=== PATIENT | female | born 1945 | race Caucasian/White ===

== ENCOUNTER → 2018-08-30 15:30 | Outpatient (CLI) | payer SELFPAY ==
--- NOTE | 2018-08-30 15:50 | EKG12_ITS ---
Test Reason : PRE OP Blood Pressure : / mmHG Vent. Rate : 086 BPM Atrial Rate : 086 BPM P-R Int : 224 ms QRS Dur : 096 ms QT Int : 368 ms P-R-T Axes : 063 017 057 degrees QTc Int : 440 ms Sinus rhythm with 1st degree A-V block Possible Left atrial enlargement Borderline ECG Confirmed by PENNIE KEY, OMA ([id number]), social media editor PATTI CHERY ([id number]) on 08/31/2018 11:01:50 AM Referred By: Giuseppe Larson Confirmed By:OMA CASPER MD
[2018-08-30 16:28] LABS: Hematocrit 41.6 % (37-47); Hemoglobin 13.5 g/dl (12.0-15.0); Mean Corp Hgb Conc 32.5 g/gl (32-36); Mean Corpuscular Hgb 31.4 pg (27.0-32.0); Mean Corpuscular Volume 96.7 fL (81-99); Mean Platelet Vol. 10.2 fl (6.2-12.0); Platelet Count 252 K/mm3 (150-450); RBC Distribution Width CV 12.8 % (11.6-14.6); RBC Distribution Width SD 44.5 fl (35.1-43.9); White Blood Count 8.2 K/mm3 (4.4-11.0)
[2018-08-30 16:30] LABS: Scan Indicated on CBC? Y/N NO
[2018-08-30 17:17] LABS: Anion Gap 4 (5-15); BUN 16 mg/dL (7-18); BUN/Creat Ratio 25.6 RATIO (10-20); Calcium,Total 9.9 mg/dL (8.5-10.1); Chloride 109 mmol/L (98-107); Creatinine, Serum 0.62 mg/dL (0.55-1.02); EST Glomerular Filtration Rate 100 mL/min (>60); Est Glom Filt Rate - Afr Amer 121 mL/min (>60); Glucose 103 mg/dL (74-106); Potassium 3.6 mmol/L (3.5-5.1); Sodium Level 142 mmol/L (136-145)
== END ==
PROVIDERS: Family Provider Family Medicine; PCP Family Medicine; Referring Provider Physician Assistant Surgical; Visit Provider Physician Assistant Surgical
DX: Z01.810 Encounter for preprocedural cardiovascular examination (principal); I10 Essential (primary) hypertension
CPT/HCPCS: 36415; 80048; 85027; 93005

== ENCOUNTER → 2020-03-07 17:43 | Outpatient (CLI) | payer SELFPAY ==
[2020-03-07 18:02] LABS: Hematocrit 39.3 % (37-47); Hemoglobin 12.9 g/dL (12.0-15.0); Mean Corp Hgb Conc 32.8 g/dL (32-36); Mean Corpuscular Hgb 32.1 pg (27.0-32.0); Mean Corpuscular Volume 97.8 fL (81-99); Mean Platelet Vol. 9.2 fl (6.2-12.0); Platelet Count 263 K/mm3 (150-450); RBC Distribution Width CV 12.3 % (11.6-14.6); RBC Distribution Width SD 43.8 fl (35.1-43.9); Red Blood Count 4.02 M/mm3 (4.2-5.4); White Blood Count 7.6 K/mm3 (4.4-11.0)
--- NOTE | 2020-03-07 18:09 | EKG12_ITS ---
Test Reason : PRE-OP Blood Pressure : / mmHG Vent. Rate : 079 BPM Atrial Rate : 079 BPM P-R Int : 194 ms QRS Dur : 094 ms QT Int : 394 ms P-R-T Axes : 064 010 040 degrees QTc Int : 451 ms Normal sinus rhythm Normal ECG Confirmed by PENNIE KEY, OMA ([id number]), state editor PATTI CHERY ([id number]) on 03/14/2020 8:54:42 AM Referred By: Santino Dutton Confirmed By:OMA CASPER MD
[2020-03-07 18:44] LABS: Anion Gap 5 (5-15); BUN 13 mg/dL (7-18); BUN/Creat Ratio 21.6 RATIO (10-20); Calcium,Total 10.1 mg/dL (8.5-10.1); Chloride 109 mmol/L (98-107); EST Glomerular Filtration Rate 104 mL/min (>60); Est Glom Filt Rate - Afr Amer 126 mL/min (>60); Glucose 102 mg/dL (74-106); Sodium Level 141 mmol/L (136-145)
== END ==
PROVIDERS: PCP Family Medicine; Referring Provider Orthopaedic Surgery; Visit Provider Orthopaedic Surgery
DX: Z01.810 Encounter for preprocedural cardiovascular examination (principal)
CPT/HCPCS: 36415; 80048; 85027; 93005

== ENCOUNTER → 2020-07-20 15:25 | Outpatient (CLI) | payer SELFPAY ==
--- NOTE | 2020-07-20 15:48 | RAD_ITS ---
HISTORY: BACK PAIN ADDITIONAL HISTORY: None provided. EXAMINATION/TECHNIQUE: XR Spine Thoracic 3 Views Number of images including paperwork: 2 COMPARISON: None FINDINGS: VERTEBRAE: Mild anterior wedging of multiple mid thoracic vertebrae. VERTEBRAL ALIGNMENT: No traumatic subluxation. Left convex thoracic scoliosis measuring approximately 15 and right convex lumbar curvature partially visible. Thoracic kyphosis. DISKS AND JOINTS: Moderate multilevel discogenic degenerative changes. SOFT TISSUES: Unremarkable paraspinous soft tissues. RAD/Thoracic Spine 3 Views IMPRESSION: 1. Mild anterior wedging of multiple mid thoracic vertebrae, age indeterminate. Correlate for localized pain. 2. Thoracolumbar scoliosis and thoracic kyphosis. 3. Thoracic spondylosis. at 0416 Reported and signed by: Viki Owens MD Electronically Signed: Viki Owens MD at 4:15 EST Tel , Service support ,
--- NOTE | 2020-07-20 15:48 | RAD_ITS ---
HISTORY: BACK PAIN ADDITIONAL HISTORY: None provided. EXAMINATION/TECHNIQUE: XR Spine Lumbar Min 4 Views Number of images including paperwork: 5 COMPARISON: None FINDINGS: VERTEBRAE: No acute fracture. Mineralization appears decreased. Approximate 20 of right convex lumbar scoliosis. VERTEBRAL ALIGNMENT: No traumatic subluxation. DISKS AND JOINTS: Moderate to severe discogenic degenerative changes at L4-5, greater on the right. SOFT TISSUES: Vascular calcification. RAD/L/S Spine Min 4 Views IMPRESSION: 1. No acute osseous abnormality. 2. Lumbar scoliosis. 3. Degenerative changes at L4-5. at 0413 Reported and signed by: Viki Owens MD Electronically Signed: Viki Owens MD at 4:13 EST Tel , Service support ,
== END ==
PROVIDERS: PCP Family Medicine; Referring Provider Family Medicine; Visit Provider Family Medicine
DX: M54.5 Low back pain (principal); M54.6 Pain in thoracic spine
CPT/HCPCS: 72072; 72110

== ENCOUNTER → 2024-06-21 | Outpatient (CLI) | payer SELFPAY ==
--- NOTE | 2024-06-21 13:18 | US_ITS ---
EXAM: US SOFT TISSUES HEAD AND NECK, THYROID CLINICAL INDICATION: thyromegaly TECHNIQUE: Greyscale and color doppler imaging was performed of the thyroid gland. COMPARISON: No relevant prior studies available. FINDINGS: LEFT THYROID LOBE: The left lobe of the thyroid is heterogeneous. Solid/cystic nodule measuring 11 x 7 x 5 mm upper pole of the left lobe of the thyroid is isoechoic, wider than tall, smooth, without echogenic foci. Cyst measuring 4 x 5 x 3 mm mid left lobe of the thyroid. The left lobe of the thyroid lobe measures 3.4 x 1.3 x 1.6 cm. RIGHT THYROID LOBE: The right lobe of the thyroid is heterogeneous. Cystic nodule measuring 8 x 8 x 7 mm superior aspect of the right lobe of the thyroid. Solid/cystic nodule measuring 10 x 8 x 6 mm superior right lobe of the thyroid is isoechoic, wider than tall, smooth without echogenic foci. Mixed cystic/solid nodule measuring 6 x 5 x 5 mm mid right lobe of the thyroid is hypoechoic, wider than tall, smooth, with an echogenic focus. No macrocalcification. No peripheral calcification. There is a punctate echogenic focus. Cystic nodule measuring 7 x 9 x 6 mm inferior right lobe of the thyroid. The right lobe of thyroid lobe measures 4.2 x 1.7 x 2.1 cm. ISTHMUS: Unremarkable. No thyroid nodules are present. The isthmus measures 0.5 cm in thickness. US/Thyroid IMPRESSION: 1. Cystic nodule measuring 8 x 8 x 7 mm superior aspect of the right lobe of the thyroid. TI-RADS points: 0. TI-RADS category: TR1. This nodule is benign and no FNA or follow-up is necessary. 2. Solid/cystic nodule measuring 10 x 8 x 6 mm superior right lobe of the thyroid is isoechoic, wider than tall, smooth without echogenic foci. TI-RADS points: 2. TI-RADS category: TR2. This nodule is not suspicious and no FNA or follow-up is necessary. 3. Mixed cystic/solid nodule measuring 6 x 5 x 5 mm mid right lobe of the thyroid is hypoechoic, wider than tall, smooth, with an echogenic focus. No macrocalcification. No peripheral calcification. There is a punctate echogenic focus. TI-RADS points: 6. TI-RADS category: TR4. This nodule is moderately suspicious but no FNA or follow-up is necessary given the small size of this nodule. 4. Cystic nodule measuring 7 x 9 x 6 mm inferior right lobe of the thyroid. TI-RADS points: 0. TI-RADS category: TR1. This nodule is benign and no FNA or follow-up is necessary. 5. Solid/cystic nodule measuring 11 x 7 x 5 mm upper pole of the left lobe of the thyroid is isoechoic, wider than tall, smooth, without echogenic foci. TI-RADS points: 2. TI-RADS category: TR2. This nodule is not suspicious and no FNA or follow-up is necessary. 6. Cyst measuring 4 x 5 x 3 mm mid left lobe of the thyroid. TI-RADS points: 0. TI-RADS category: TR1. This nodule is benign and no FNA or follow-up is necessary. Electronically Signed: Santino Whiteside MD at 8:06 EST ,
== END | disposition home or self-care (01) ==
PROVIDERS: PCP Nurse Practitioner Family; Referring Provider Nurse Practitioner Family; Visit Provider Nurse Practitioner Family
DX: R13.10 Dysphagia, unspecified (principal); E04.9 Nontoxic goiter, unspecified
CPT/HCPCS: 76536

== ENCOUNTER → 2024-08-09 | Outpatient (CLI) | payer SELFPAY ==
--- NOTE | 2024-08-09 13:38 | SP.MBSS_ITS ---
Modified Barium Swallow Patient Information Study Date: 08/09/24 Study Time: 12:55 Direct Billable Minutes: 89 Total Minutes procedure & reportin Diagnosis: Dysphagia R13.10 Referring Physician: Santino Vergara Reason for Referral: Objectively assess swallow function, assess risk for aspiration, and determine recommendations for least restrictive diet textures and compensatory strategies to improve safety of swallow. Medical History: PMH: multiple thyroid nodules, difficulty swallowing, bright red blood per rect um, constipation, hemorrhoids, stomach ulcer, GERD, HTN, arthritis. Pt had recent surgical consultation w/ Dr. Vergara due to swallowing difficulty and bright red blood per rectum. She is recommended for EGD and colonoscopy, as well as MBSS. Pt reports swallowing difficulty for ~1 year characterized by sensation of something caught in her throat at all times, but especially in the morning and while she is eating food/drink. Occ coughing w/ food and drink. No hx of choking. No regurgitation. PMH significant for GERD managed by Protonix, PNA as a child, and dental issues requiring upcoming oral surgery due to tooth infection. Current Diet Ordered: Regular textures / Thin liquids Dentition: Natural Teeth (Planned for upcoming dental surgery per patient) Mental Status: WNL Respiratory Status: Oxygenating on Room Air Penetration-Aspiration Scale Penetration-Aspiration Scale: OBJECTIVE ASSESSMENT OF SWALLOW FUNCTION (QUANTITATIVE ? PER TRIAL): PENETRATION / ASPIRATION SCALE ([place]): 1 = does not enter airway 2 = enters airway/above vocal folds/ejected 3 = enters airway/above vocal folds/not ejected 4 = enters airway/contacts vocal folds/ejected 5 = enters airway/contacts vocal folds/not ejected 6 = enters airway/below vocal folds/ejected 7 = enters airway/below vocal folds/not ejected despite effort 8 = enters airway/below vocal folds/no effort VIDEOFLOROSCOPIC SCALE SCORE ([place]): Grade I = aspiration of material that has penetrated into the laryngeal vestibule, intact cough reflex Grade II = aspiration < 10 % of the bolus, intact cough reflex Grade III = aspiration of < 10 % of the bolus, reduced cough reflex or aspiration of > 10 % of the bolus, intact cough reflex Grade IV = aspiration of > 10 % of the bolus, reduced cough reflex Penetration-Aspiration Scale Score Thin Liquid via teaspoon: Result: 2= enter airway/above vocal folds/ejected Thin Liquid via teaspoon Trial 2: Result: 1= does not enter airway Thin Liquid via sequential sips: cup: Result: 2= enter airway/above vocal folds/ejected [place] Thick Liquid via sequential sips: cup: Result: 2= enter airway/above vocal folds/ejected Pudding via teaspoon: Result: 1= does not enter airway Comment: Esophageal screen - Retention in the upper and middle esophagus. Thin Liquid via sequential sips:straw: Result: 2= enter airway/above vocal folds/ejected Comment: Esophageal screen - Liquid wash mostly cleared retention through the esophagus with mild retention remaining. 07/16 Cookie: Result: 1= does not enter airway Comment: Esophageal screen - Mild retention in the upper and lower esophagus. Liquid wash via single sip by straw was provided and somewhat cleared remaining retention, but pt did present w/ retrograde flow of barium through the LES to the lower esophagus. Oral Phase Labial Seal: No Labial Escape Tongue Control During Bolus Hold: Posterior escape of less than half of bolus Bolus Preparation/Mastication: Timely and efficient chewing and mashing Bolus Transport/Lingual Motion: Delayed initiation of tongue motion Oral Residue: Residue collection on oral structures Pharyngeal Phase Initiation of Pharyngeal Swallow: Bolus head in pyriforms Soft Palate Elevation: Trace column of contrast/air between soft palate and pharyngeal wall Laryngeal Elevation: Comp. Superior move thyroid cart w/comp. apprx arytenoid cart-epig pet Anterior Hyoid Excursion: Partial anterior movement Epiglottic Movement: Complete inversion Laryngeal Vestibule Closure at Height of Swallow: Incomplete; narrow column of air/contrast in laryngeal vestibule (trace laryngeal penetration w/ full ejection) Pharyngeal Stripping Wave: Present - complete Pharyngoesophageal Segment Opening: Complete distension and complete duration; no obstruction of flow Tongue Base Retraction: Trace column of contrast between tongue base & post. pharyngeal wall Pharyngeal Residue: Trace residue within or on pharyngeal structures Esophageal Phase Esophageal Clearance: Esophageal retention w/ retrograde flow below pharyngoesophageal seg. Diagnosis/Impression Diagnosis: Esophageal dsyphagia R13.14 Impression: The oropharyngeal swallow appeared grossly WNL. Trace laryngeal penetration of thin liquids during the swallow that fully ejected. No aspiration. Trace pharyngeal residues. The esophageal phase is primarily marked by... -CP bar at the level of C3-C4, which did not appear to impact bolus clearance through the UES. -Retention of pudding in the upper and middle esophagus, which mostly cleared w/ liquid wash. -Retention of cookie in the upper and lower esophagus, which somewhat cleared w/ liquid wash. Retrograde flow of thin liquids through the LES to the lower esophagus. Recommendations Diet: Regular Textures and Thin Liquids Comment: If sensation of retention of food/drink worsens in throat despite use of liquid wash, will recommend stopping meal and resuming at a later time due to slowed esophageal clearance. Compensatory Strategies: Small Bites, Small Sips, Slow Rate, Alternate bites/solids and sips/liquids (1:1 ratio), Sitting upright and Remain sitting upright for 30 minutes after PO intake Recommend Repeat Modified Barium Swallow: No Need for Skilled Speech Therapy Services: No Recommended Referrals: GI Consult Education Completed: 1. Described result of evaluation. Status Active ST Patient: Active Contact Information [facility]:: Susana Vidal M.A. CCC-DIRECT MARKETING INTERN? Speech-Language Pathologist?? [facility] [id number]?? [place] [address]?? [email or web address]?? [phone]
== END | disposition home or self-care (01) ==
PROVIDERS: PCP Nurse Practitioner Family; Referring Provider Surgery; Visit Provider Surgery
DX: R13.10 Dysphagia, unspecified (principal)
CPT/HCPCS: 74230; 92611

== ENCOUNTER 2024-09-22 12:27 | Day surgery (SDC) | payer SELFPAY ==
[2024-09-22] VITALS (9 sets, daily range): BP systolic 108–167; BP diastolic 64–94; PULSE 53–86; RESP 16; TEMP 36.1–36.5; O2SAT 94–100; BMI 29.0
--- NOTE | 2024-09-22 13:30 | EGD_PTH ---
PATIENT: MIKAELA LANDRUM LOC: EN U#:[id number] AGE/SX: 79/F ROOM: RE09/22/[address]: Dr. Santino Vergara MD : 1945 BED: DIS: 09/22/2024 SPEC #: [id number] RECD: 09/23/24 13:23 STATUS: DONIS NEVA #: [id number] LANDEN: 09/22/24 13:[address]: Santino Vergara DEPT: SURGICAL PATHOLOGY RECD BY: Avinash Mendoza ENTERED: 09/23/24 13:24 SP TYPE: EGD BIOPSY OTHR DR: Wendy Fry, CAREER PORTALS TEACHER-C Tissues: A - Gastric mucous membrane B - Stomach, NOS C - COLON BIOPSY D - Esophagus, NOS E - Rectum, NOS Procedures: Immunohistochemical Stains Surgery Specimen Level IV HEADER OPERATION: Colonoscopy, EGD with biopsy, hemostasis PRE-OP DIAGNOSIS: Difficulty swallowing, bright red blood per rectum TISSUE SUBMITTED: A- Antrum biopsy, B- Lesser curvature polyp, C- Fundal polyps biopsy (3), D- Gastroesophageal junction biopsy, E- Anal mass MICROSCOPIC DIAGNOSIS A. Stomach, antrum, biopsy: * Chronic gastritis with features of reactive gastropathy. * IHC is negative for H pylori. B. Stomach, lesser curvature, polyp, biopsy: * Fundic gland polyp. C. Stomach, fundus, polyps, biopsy: * Fundic gland polyp. * Polypoid foveolar hyperplasia. D. Esophagus, gastroesophageal junction, biopsy: - Columnar mucosa negative for goblet cell metaplasia. - No squamous mucosa seen. E. Anus, mass, biopsy: * Inflammatory polyp. A. MICROSCOPIC DESCRIPTION Slides are reviewed. These tests were developed and their performance characteristics determined by [facility]. They may not have been cleared or approved by the U.S. Food and Drug Administration. The FDA has determined that such clearance or approval is not necessary. The above immunohistochemical/dualISH markers are ordered and reviewed by the Pathologist. GROSS DESCRIPTION A. Received in fixative is one container labeled with the patient's name and designated Antrum biopsy. The specimen consists of two irregular fragments of light guido soft tissue that in aggregate measure 0.8 x 0.2 x 0.2 cm. The specimen is totally submitted in one cassette. B. Received in fixative is one container labeled with the patient's name and designated Lesser curvature biopsy. The specimen consists of one irregular fragment of light guido soft tissue that measures 0.4 x 0.3 x 0.2 cm. The specimen is totally submitted in one cassette. C. Received in fixative is one container labeled with the patient's name and designated Fundal polyps. The specimen consists of multiple irregular fragments of light guido soft tissue that in aggregate measure 1.4 x 0.3 x 0.2 cm. The specimen is totally submitted in one cassette. D. Received in fixative is one container labeled with the patient's name and designated GE junction biopsy. The specimen consists of one irregular fragment of light guido soft tissue that measures 0.4 x 0.2 x 0.2 cm. The specimen is totally submitted in one cassette. E. Received in fixative is one container labeled with the patient's name and designated Anal mass. The specimen consists of one irregular fragment of light guido soft tissue that measures 1 x 1 x 0.5 cm. The specimen inked, bisected and is totally submitted in one cassette. mr 09/23/2024 CPT:[id number]
--- NOTE | 2024-09-22 13:48 | PCM.PRE.AN2 ---
ASA Classification* ASA Classification ASA Classification: 2 Assessment & Plan Anesthesia* Anesthesia Assessment Anesthesia Assessment: Discussed sedation and/or anesthesia options, risks, benefits, and alternatives with patient/parents/legal guardian/POA. Questions invited. The patient/parents/legal guardian/POA seems to understand and agrees to proceed with anesthesia plan. Reviewed the physical assessment, medical history, allergy history and patient home medications list prior to surgery/procedure/anesthetic and documented any changes. Performed airway and anesthesia risk assessments. Anesthesia Type Anesthesia Type: General History Source History Obtained from:: Patient and Chart Anesthesia Focused Assessment* Temperature: 97.7 F Pulse Rate: 86 Blood Pressure: 167/85 Respiratory Rate: 16 Pulse Ox: 98 Oxygen Delivery Method: Room Air Airway Assessment Mouth opens: >3 cm Mallampati Score: II Teeth Condition: Chipped/Broken and Missing (many missing) Neck Range of motion (ROM): Full ROM Focused Labs Anesthesia Preop lab: CBC WBC 7.6 K/mm3 (4.4-11.0) 03/07/20 17:54 03/07/20 RBC 4.02 M/mm3 (4.2-5.4) L 03/07/20 17:54 03/07/20 Hgb 12.9 g/dL (12.0-15.0) 03/07/20 17:54 03/07/20 Hct 39.3 % (37-47) 03/07/20 17:54 03/07/20 Plt Count 263 K/mm3 (150-450) 03/07/20 17:54 03/07/20 CHEMISTRY Potassium 4.0 mmol/L (3.5-5.1) 03/07/20 17:54 03/07/20 Sodium 141 mmol/L (136-145) 03/07/20 17:54 03/07/20 BUN 13 mg/dL (7-18) 03/07/20 17:54 03/07/20 Creatinine 0.60 mg/dL (0.55-1.02) 03/07/20 17:54 03/07/20 Glucose 102 mg/dL (74-106) 03/07/20 17:54 03/07/20 COAG Pre-Assessment Diagnosis/Proposed Procedure Planned Operative Procedure(s): COLONOSCOPY/EGD Anesthesia History 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 When Was Last Pacemaker Check QUESTION #4 FULL TEXT: You/Your Family Experience fever (hyperthermia) with Anesthesia Last Oral Intake Last Oral intake: Last Oral Intake NPO since 06:00 09/22/24 12:59 Meds taken in AM with sips of Yes 09/22/24 12:59 water? Meds patient instructed to amlodipine 09/22/24 12:59 take am of surgery PONV PONV - property accountant: PONV - property accountant Female Yes 09/05/24 09:39 HX of Motion Sickness No 09/05/24 09:39 HX of N/V After Surgery No 09/05/24 09:39 Non-Smoker Yes 09/05/24 09:39 Duration of Surgery greater No 09/05/24 09:39 than 60 minutes Number of Risk Factors 2 09/05/24 09:39 PONV Score Moderate Risk 09/05/24 09:39 Height & Weight Height & Weight: Anesthesia: Height & Weight Height 5 ft 09/22/24 12:59 Weight: 67.4 kg 09/22/24 12:59 Body Mass Index (BMI) 29.0 09/22/24 12:59 Respiratory Assessment Respiratory Assessment - property accountant: Respiratory Tract Infection Hx - property accountant Hx Respiratory Tract Infection No 09/05/24 09:39 STOP Sleep Apnea STOP Sleep Apnea - property accountant: STOP Sleep Apnea - property accountant Hx Hypertension No 09/05/24 09:39 Hx Sleep Apnea No 09/05/24 09:39 CPAP BIPAP Do you snore loudly (louder No 09/05/24 09:39 than talking or can be heard Do you often feel tired/ No 09/05/24 09:39 fatigued/ sleepy during daytime? Has anyone observed you stop No 09/05/24 09:39 breathing during sleep? STOP Results Negative 09/05/24 09:39 QUESTION #5 FULL TEXT : Do you snore loudly (louder than talking or can be heard through closed doors)? Tobacco Use History Tobacco Use History - property accountant: Tobacco Use History - property accountant Tobacco Use Smoking Status Never smoker 09/05/24 09:39 Hx Tobacco Use No 09/05/24 09:39 Years Smoking Packs Smoked per Day Smoking Cessation Date was within the last 15 years Hx Smoking Cessation Date Hx Smoking Cessation Counseling Hematologic Medial History Hematologic Hx - property accountant: Hematologic Medical Hx - cath lab technologist Hx of Blood Transfusion Yes 09/05/24 09:39 Hx of Transfusion in last 3 No 09/05/24 09:39 Months Date of Last Transfusion (if within last 3 months) Ever experience any problems No 09/05/24 09:39 with transfusion(s)? Specify any problems Hx of Preganancy in last 3 No 09/05/24 09:39 Months Nurse Filling Out Transfusion VCHRISTIN 09/05/24 09:39 & Questions: Date: 09/05/24 09/05/24 09:39 Time: 09:40 09/05/24 09:39 Patient unable to answer at this time (ie. confused, unrespo /Reproduction History /Reproductive History - property accountant: /Reproductive Hx- property accountant Hx Now Gestational Age (in weeks): EDC: Hx Hx Para Hx Section SAB PFSH Medical History Wears glasses Post-menopausal History of abscessed tooth DVT (deep venous thrombosis) Back pain History of ulceration Gastric reflux Non-smoker History of pain when walking History of edema History of irregular heartbeat Constipation Hemorrhoids Stomach ulcer Acid reflux HTN (hypertension) Arthritis Home Medications ?Medication ?Instructions ?Recorded ?Last Taken ?Type amlodipine 5 mg tablet 5 mg PO QDAY 07/27/24 09/22/24 08:30 History aspirin 81 mg tablet,delayed 81 mg PO QDAY 07/27/24 09/17/24 History release (Adult Aspirin Regimen) cholecalciferol (vitamin D3) 25 25 mcg PO QDAY 07/27/24 Unknown History mcg (1,000 unit) capsule hydrochlorothiazide 12.5 mg capsule 12.5 mg PO QAM 07/27/24 Unknown History lisinopril 5 mg tablet 5 mg PO QDAY 07/27/24 Unknown History omega 8-grj-cxn-fish oil 300 1 cap PO QDAY 07/27/24 09/17/24 History mg-1,000 mg capsule (Fish Oil) pantoprazole 40 mg tablet,delayed 40 mg PO QDAY 07/27/24 Unknown History release (Protonix) red yeast rice 600 mg capsule 600 mg PO QDAY 07/27/24 Unknown History vitamin E (dl, acetate) 45 mg (100 45 mg PO QDAY 07/27/24 09/17/24 History unit) capsule Allergy/AdvReac Type Severity Reaction Status Date / Time No Known Allergies Allergy Verified 09/22/24 12:57 Surgical History (Updated 09/05/24 @ 09:39 by Wendy Armas) Hx of colonoscopy Hx of dilation and curettage Hx of knee surgery H/O carpal tunnel repair H/O: hysterectomy Social History (Updated 07/27/24 @ 08:31 by Kristen Callahan) Smoking Status: Never smoker alcohol intake: never Review of Systems (Anesthesia) ROS Narrative System reviewed and no additional complaints, except as documented. Physical Exam Const alert, oriented x3 and average body habitus Resp normal respiratory effort, normal air movement and clear to auscultation bilaterally Cardio regular rate, regular rhythm, no murmurs and diaphoretic
--- NOTE | 2024-09-22 14:26 | PCM.HP.BLA ---
History and Physical Date of Admission: 09/22/24 Date of Service: 07/27/24 MR#: [id number] Acct: [id number] Name: MIKAELA JENKINS Rep #: [id number] : 1945 Provider: Dr. Santino Vergara MD Age/Sex: 78/F Location: [facility] Status: Signed Intake Vital Signs 07/27/2507:31 Height 5 ft Weight: 154 lb BMI 30.0 BP 158/89 H Blood Pressure Location Lt brachial Position Sitting Respiration 17 Pulse 74 Pulse Source Monitor Temp 97.5 F L Temp Source Temporal Pulse Oximetry (%) 95 Oxygen Delivery Method room air Intake Visit Reasons: THYROID NODULE Chief Complaint: thyroid nodule Is patient in pain?: No Allergies No Known Allergies Allergy (Verified 07/27/24 08:31) Medications ?Medication ?Instructions ?Recorded ?Confirmed ?Type amlodipine 5 mg tablet 5 mg PO QDAY 07/27/24 07/27/24 History aspirin 81 mg tablet,delayed 81 mg PO QDAY 07/27/24 07/27/24 History release (Adult Aspirin Regimen) cholecalciferol (vitamin D3) 25 25 mcg PO QDAY 07/27/24 07/27/24 History mcg (1,000 unit) capsule hydrochlorothiazide 12.5 mg capsule 12.5 mg PO QAM 07/27/24 07/27/24 History lisinopril 5 mg tablet 5 mg PO QDAY 07/27/24 07/27/24 History omega 3-vqq-wyk-fish oil 300 1 cap PO QDAY 07/27/24 07/27/24 History mg-1,000 mg capsule (Fish Oil) pantoprazole 40 mg tablet,delayed 40 mg PO QDAY 07/27/24 07/27/24 History release (Protonix) red yeast rice 600 mg capsule 600 mg PO QDAY 07/27/24 07/27/24 History vitamin E (dl, acetate) 45 mg (100 45 mg PO QDAY 07/27/24 07/27/24 History unit) capsule Have you fallen in the past year?: No PFSH Medical History (Updated 07/27/24 @ 14:[address] Santino Vergara MD) Constipation Hemorrhoids Stomach ulcer Acid reflux HTN (hypertension) Arthritis Surgical History (Updated 07/27/24 @ 08:30 by Kristen Callahan) H/O carpal tunnel repair H/O: hysterectomy Social History (Updated 07/27/24 @ 08:31 by Kristen Callahan) Smoking Status: Never smoker alcohol intake: never HPI HPI HPI: Patient is a 78-year-old female who presents for evaluation of bilateral thyroid nodularity and thyromegaly. They are referred for surgical consultation from Mrs. Ang NP. This was discovered during evaluation for patient complaints of swallowing difficulty. Mrs. Jenkins is somewhat vague in her history but describes a mildly progressive difficulty swallowing that exceeds 1 year duration. She notes that it is now experienced all the time and denies any clear association with either food or drink. She clarifies that she has had no choking episodes. She also clarifies that it does seem to be higher in her neck than lower and a retrosternal location. She adds that it feels like something needs cleared out. They do not complain of a new cough. They do not appreciate new voice changes. They do not have a history of snoring/sleep apnea. Additionally, their weight has been stable and they do not have a history of weight gain/loss or an inability to lose despite intentional effort. There is no history of recent fatigue and patient confirms her energy level has been reasonable. They do not have a history of heat or cold intolerance. Other symptoms include: Some constipation. They do not have a family history of thyroid disorders or endocrinopathies. There is no history of prior radiation exposure. Previous work-up has included thyroid ultrasound. This study was performed on 06/21/2024 and showed a right thyroid lobe measuring 4.2 x 1.7 x 2.1 cm. Within this lobe radiology identified multiple nodules measuring from 0.6 cm to 1 cm in greatest dimension and ranged from a TI-RADS 1 rating to a TI-RADS 4 rating (a 6 mm nodule). The left thyroid lobe measured 3.4 x 1.3 x 1.6 cm. Within this lobe radiology identified 2 additional nodules measuring 1.1 cm and 5 mm in greatest dimension. An FNA has not been recommended nor been performed. Mrs. Jenkins goes on to describe that she is experiencing some lower abdominal pain which she believes is relieved with bowel movements. She also adds that with her constipation she has noticed some bright red blood per rectum and attributes this to hemorrhoidal disease. She describes bowel movement frequency of 3-4 stools per day and minimal toilet time. She confirms a history of a colonoscopy approximately [address] Bhavik Martins of [facility]. She believes at that time she was given a 10-year follow-up. Additionally, she describes some reflux and a history of Protonix use. She confesses that she was feeling better so she resorted to an atrk-ins-gvoblwn medication but now feeling more poorly return to Protonix and has been on this medication faithfully for the last 1 week. In addition to the colonoscopy performed in 2019 she did undergo EGD exam at that time and was told she had an ulcer?occasioning the prescription for Protonix. ROS General General: No weight change, appetite, fatigue, colon cancer, breast cancer or weakness HEENT HEENT: Yes difficulty swallowing and eye surgery; No eye injury, swollen glands or hoarseness Endo Endocrine: No thyroid disease, diabetes mellitus, thyroid cancer, Hair loss, heat intolerance or cold intolerance Skin Skin: No rash or changing moles Musc Musculoskeletal: Yes back problems and arthritis; No rheumatoid arthritis, gout or joint pain Cardio Cardiovascular: Yes high blood pressure; No murmur, pacemaker, heart disease, atrial fibrillation, heart attack, heart stent, palpitations, shortness of breat with exertion or chest pain Psych Psychiatric: No depression, anxiety or hearing voices Resp Respiratory: No shortness of breath, No sleep apnea, No cough, No COPD, No asthma, No emphysema and No wheezing Gastro Gastrointestinal: Yes abdominal pain, No nausea or vomiting, No diarrhea, Yes constipation, No blood in stool, Yes acid reflux, Yes hemorrhoids, Yes ulcers, No gallbladder problem and No black,tarry stools Celestino Hematologic: No blood thinners, No blood disorders, No bleeding, No anemia and Yes blood clots Additional Details: 1972 Neuro Neurologic: No system reviewed and no additional complaints, except as documented, No as per HPI, No abnormal gait, No abnormal hearing, No abnormal movements, No abnormal speech, No behavioral changes, No burning sensations, No confusion, No convulsions, No disequilibrium, No dizziness, No localized weakness, No frequent falls, No headache(s), No lack of coordination, No loss of vision, No memory loss, Yes numbness, No other visual disturbances, No radicular pain, No restless legs, No sensory deficit, No syncope, Yes tingling, No tremor(s), No weakness and No other Exam Const General: cooperative and comfortable Orientation: alert, awake and oriented x3 Neck Other: Supple, moderately thick, no discrete thyroid nodularity. No appreciable cervical lymphadenopathy with palpation. GI Other: Nondistended, soft, nontender to palpation x 4 quadrants Assessment and Plan Assessment and Plan (1) Multiple thyroid nodules: Status: Acute Comment: Patient is 78-year-old female who arrives for consultation related to recent finding of multiple thyroid nodules. I held a lengthy conversation with patient and her regarding the recent ultrasound exam of her thyroid and sketched out a schematic of her thyroid as it might be represented in a rudimentary fashion. I shared that majority of her nodules were rated either TI-RADS 1 or 2. They 1 nodule that merited a TI-RADS 4 rating that is just 6 mm in greatest diameter and located in the right thyroid lobe. I went on to describe the TI-RADS rating system as a means of triage nodules based on their imaging characteristics. I extended my explanation to share that none of her nodules met ACR criteria for biopsy. I further explained that her thyroid proportions are not particularly concerning and I felt unlikely to be the cause of her complaints of dysphagia versus globus sensation. Instead, I favor a esophageal/reflux etiology?especially in light of her can fashions of going off of PPI medication after discovery of prior ulcer disease. This impression was shared and I recommended proceeding with esophagram as well as repeat EGD (since patient's symptoms developed subsequent to her EGD exam in 2019) Plan: ? No biopsy of patient's thyroid recommended and feel unlikely to be source for swallowing difficulty/globus sensation (2) Difficulty swallowing: Status: Acute Comment: As above, suspect possible esophageal etiology for patient's swallowing difficulty and recommend EGD if esophagram. Patient initially apprehensive but with further explanation does agree to proceed. Plan: EGD and esophagram (3) Bright red blood per rectum: Status: Acute Comment: Patient describes bright red blood per rectum which she attributes to hemorrhoids, however, she estimates that her last colonoscopy was conducted some 5 years ago. Given the duration since this exam I recommend proceeding for repeat exam concurrent with her EGD recommended above. Will consent her for possible hemorrhoid banding if this is found to be the cause of her bleeding. Plan: Plan will be to complete colonoscopy with hemorrhoid banding on first mutually agreeable date under local MAC. Pre-procedure prep discussed and paper instructions provided. Patient is also made aware that she will need to have a clark driver with her the day of the procedure. Orders: Orders Swallowing Function w/Video Today R13.10 - Dysphagia, unspecified I have examined the patient the following changes are noted: Patient had a upper respiratory tract infection developed 2 weeks ago prompting her to cancel her original appointment. She states she is now better. She has had ongoing difficulty intermittently with both swallowing as well as abdominal pain and diarrhea. With all of these things remaining consistent with her prior visit we will plan to keep our original plans for EGD followed by colonoscopy. Patient's abdominal exam is benign today. She also confirms she completed prep for today's procedure and that her output is now clear.
--- NOTE | 2024-09-22 16:11 | PCM.POST.ANE ---
Anesthesia: Postop Eval I Current Vital Signs Temperature: 97 F Pulse Rate: 78 Blood Pressure: 108/68 Respiratory Rate: 16 Pulse Ox: 98 Oxygen Delivery Method: Room Air Assessment Airway patent: Yes Spontaneous unlabored respirations: Yes Mental status: Awake and Calm nausea: No Vomiting: No Anesthesia Complication: No Fluid Hydration Crystalloid volume administer (ml): 50 Total IV fluid infused: 50 Progress Note Anesthesia document: Postop Eval 1 completed: Yes
--- NOTE | 2024-09-22 16:20 | POSTOPAN2_ITS ---
Anesthesia Postop Eval I Sum Postop Eval Completion status Anesthesia document: Postop Eval 1 completed: Yes Anesthesia Postop Eval I Summary Anesthesia Postop Eval I Summary: Anesthesia Postop Eval I: Assessment Summary Airway patent Yes 09/22/24 16:11 [email or web address] [email or web address] Spontaneous unlabored Yes 09/22/24 16:11 LASER [email or web address].OT respirations Mental status Awake,Calm 09/22/24 16:11 LASER [email or web address] nausea No 09/22/24 16:11 LASER [email or web address] Vomiting No 09/22/24 16:11 LASER [email or web address] Anesthesia Postop Eval I: Fluid Summary Crystalloid volume administer 50 09/22/24 16:11 LASER CUTTER.MDOT (ml) Colloids volume administered ( ml) Blood Product volume administered (ml) Total IV fluid infused 50 09/22/24 16:11 LASER [email or web address].OT Anesthesia Postop Eval I: Summary Notes Anesthesia Complication No 09/22/24 16:11 LASER CUTTER.OT Anesthesia Complication Comment: Post-operative progress note Anesthesia: Postop Eval II Evaluation Mental status: Awake and Calm Pain Level: 0 nausea: No Vomiting: No Complications Anesthesia Complication: No
--- NOTE | 2024-09-22 16:20 | PCM.POSTANE2 ---
Anesthesia Postop Eval I Sum Postop Eval Completion status Anesthesia document: Postop Eval 1 completed: Yes Anesthesia Postop Eval I Summary Anesthesia Postop Eval I Summary: Anesthesia Postop Eval I: Assessment Summary Airway patent Yes 09/22/24 16:11 STARTER [email or web address] Spontaneous unlabored Yes 09/22/24 16:11 STARTER [email or web address].OT respirations Mental status Awake,Calm 09/22/24 16:11 STARTER [email or web address] nausea No 09/22/24 16:11 STARTER MECHANIC.MDOT Vomiting No 09/22/24 16:11 STARTER [email or web address] Anesthesia Postop Eval I: Fluid Summary Crystalloid volume administer 50 09/22/24 16:11 STARTER [email or web address].MDOT (ml) Colloids volume administered ( ml) Blood Product volume administered (ml) Total IV fluid infused 50 09/22/24 16:11 STARTER [email or web address].OT Anesthesia Postop Eval I: Summary Notes Anesthesia Complication No 09/22/24 16:11 STARTER MECHANIC.OT Anesthesia Complication Comment: Post-operative progress note Anesthesia: Postop Eval II Evaluation Mental status: Awake and Calm Pain Level: 0 nausea: No Vomiting: No Complications Anesthesia Complication: No
--- NOTE | 2024-09-22 16:22 | OP.EGD_ITS ---
Patient Name: Kiana Jenkins Procedure Date: 09/22/2024 2:30 PM Date of : 1945 Age: 79 Procedure: Upper GI endoscopy Indications: Dysphagia Providers: Santino Vergara MD Medicines: See the Anesthesia note for documentation of the administered medications Patient Profile: Refer to note in patient chart for documentation of history and physical. Complications: No immediate complications. Estimated blood loss: Minimal. Procedure: Pre-Anesthesia Assessment: - The heart rate, respiratory rate, oxygen saturations, blood pressure, adequacy of pulmonary ventilation, and response to care were monitored throughout the procedure. After obtaining informed consent, the endoscope was passed under direct vision. Throughout the procedure, the patient's blood pressure, pulse, and oxygen saturations were monitored continuously. The gastroscope was introduced through the mouth, and advanced to the second part of duodenum. The upper GI endoscopy was accomplished without difficulty. The patient tolerated the procedure well. Scope In: 2:42:49 PM Scope Out: 3:13:36 PM Total Procedure Duration Time 0 hours 30 minutes 47 seconds Findings: No gross lesions were noted in the duodenal bulb, in the first portion of the duodenum and in the second portion of the duodenum. No biopsies or other specimens were collected for this exam. Localized mildly erythematous mucosa without bleeding was found in the gastric antrum. Biopsies were taken with a cold forceps for histology. Estimated blood loss was minimal. A single 7 mm pedunculated polyp with bleeding and no stigmata of recent bleeding was found on the lesser curvature of the stomach. The polyp was removed with a hot snare. Resection and retrieval were complete. Estimated blood loss: none. Estimated blood loss: 3 mL requiring treatment with placement of hemostatic clip(s). Three 2 to 5 mm semi-pedunculated polyps with no bleeding and no stigmata of recent bleeding were found in the gastric fundus. Biopsies were taken with a cold forceps for histology. Estimated blood loss was minimal. A medium-sized hiatal hernia was present. No biopsies or other specimens were collected for this exam. The Z-line was irregular and was found 37 cm from the incisors. Biopsies were taken with a cold forceps for histology. Estimated blood loss: 2 mL requiring treatment with electrocautery. The exam was otherwise without abnormality. Impression: - No gross lesions in the duodenal bulb, in the first portion of the duodenum and in the second portion of the duodenum. No specimens collected. - Erythematous mucosa in the antrum. Biopsied. - A single gastric polyp. Resected and retrieved. - Three gastric polyps. Biopsied. - Medium-sized hiatal hernia. No specimens collected. - Z-line irregular, 37 cm from the incisors. Biopsied. - The examination was otherwise normal. Recommendation: - Discharge patient to home (via wheelchair). - Soft diet for 2 days. - No aspirin, ibuprofen, naproxen, or other non-steroidal anti-inflammatory drugs for 2 days after biopsy. - Await pathology results. - Telephone my office for pathology results in 2 days. Procedure Code(s): --- Professional --- 95944, Esophagogastroduodenoscopy, flexible, transoral; with removal of tumor(s), polyp(s), or other lesion(s) by snare technique 99438, 59, Esophagogastroduodenoscopy, flexible, transoral; with biopsy, single or multiple Diagnosis Code(s): --- Professional --- K31.89, Other diseases of stomach and duodenum K31.7, Polyp of stomach and duodenum K44.9, Diaphragmatic hernia without obstruction or gangrene K22.89, Other specified disease of esophagus R13.10, Dysphagia, unspecified CPT copyright 2021 [employer] [place] [employer]. All rights reserved. The codes documented in this report are preliminary and upon load blocker review may be revised to meet current compliance requirements. Santino Vergara MD 09/22/2024 4:21:31 PM This report has been signed electronically. Number of Addenda: 0 Note Initiated On: 09/22/2024 2:30 PM
--- NOTE | 2024-09-22 16:22 | OP.CCLET_ITS ---
09/22/2024 Wendy Fry Fire Alarm Mechanic, Fire Alarm Mechanic-c Re : Upper GI endoscopy procedure for Kiana Jenkins Dear Ang This procedure was performed on September. My impressions and recommendations are as follows: Impressions : - No gross lesions in the duodenal bulb, in the first portion of the duodenum and in the second portion of the duodenum. No specimens collected. - Erythematous mucosa in the antrum. Biopsied. - A single gastric polyp. Resected and retrieved. - Three gastric polyps. Biopsied. - Medium-sized hiatal hernia. No specimens collected. - Z-line irregular, 37 cm from the incisors. Biopsied. - The examination was otherwise normal. Recommendations : - Discharge patient to home (via wheelchair). - Soft diet for 2 days. - No aspirin, ibuprofen, naproxen, or other non-steroidal anti-inflammatory drugs for 2 days after biopsy. - Await pathology results. - Telephone my office for pathology results in 2 days. My findings are described in the full procedure note, which is enclosed. If I can be of further assistance, please feel free to contact me at Doctor phone number(s): , Work: . Sincerely, Santino Vergara MD 09/22/2024 4:21:31 PM This report has been signed electronically.
--- NOTE | 2024-09-22 16:29 | OP.CCLET_ITS ---
09/22/2024 Wendy Fry Pipe Chipper, Pipe Chipper-c Re : Colonoscopy procedure for Kiana Jenkins Dear Ang This procedure was performed on September. My impressions and recommendations are as follows: Impressions : - Anal mass 0 to 1 cm from the anal verge. - Tortuous colon. - Diverticulosis in the sigmoid colon. No specimens collected. - The examination was otherwise normal on direct and retroflexion views. Recommendations : - Discharge patient to home (via wheelchair). - Soft diet for 2 days. - No aspirin, ibuprofen, naproxen, or other non-steroidal anti-inflammatory drugs for 2 days after biopsy. - Await pathology results. - Telephone nurse practitioner for pathology results in 1 week. - Repeat colonoscopy is recommended for surveillance. The colonoscopy date will be determined after pathology results from today's exam become available for review. My findings are described in the full procedure note, which is enclosed. If I can be of further assistance, please feel free to contact me at Doctor phone number(s): , Work: . Sincerely, Santino Vergara MD 09/22/2024 4:28:53 PM This report has been signed electronically.
--- NOTE | 2024-09-22 16:29 | OP.COLON_ITS ---
Patient Name: Kiana Jenkins Procedure Date: 09/22/2024 3:15 PM Date of : 1945 Age: 79 Procedure: Colonoscopy Indications: Lower abdominal pain, Chronic diarrhea, Hematochezia Providers: Santino Vergara MD Medicines: See the Anesthesia note for documentation of the administered medications Patient Profile: Refer to note in patient chart for documentation of history and physical. Last Colonoscopy: 5 years ago. Complications: No immediate complications. Estimated blood loss: Minimal. Procedure: Pre-Anesthesia Assessment: - The heart rate, respiratory rate, oxygen saturations, blood pressure, adequacy of pulmonary ventilation, and response to care were monitored throughout the procedure. - The heart rate, respiratory rate, oxygen saturations, blood pressure, adequacy of pulmonary ventilation, and response to care were monitored throughout the procedure. After I obtained informed consent, the scope was passed under direct vision. Throughout the procedure, the patient's blood pressure, pulse, and oxygen saturations were monitored continuously. The Colonoscope was introduced through the anus and advanced to the ileocecal valve. The colonoscopy was technically difficult and complex due to abnormal anatomy, a redundant colon, significant looping and a tortuous colon. Successful completion of the procedure was aided by withdrawing and reinserting the scope, straightening and shortening the scope to obtain bowel loop reduction and using scope torsion. The patient tolerated the procedure fairly well. The quality of the bowel preparation was adequate to identify polyps. Scope In: 3:19:18 PM Scope Withdrawal Time 0 hours 9 minutes 5 seconds Scope Out: 4:09:01 PM Total Procedure Duration Time 0 hours 49 minutes 43 seconds Findings: The digital rectal exam revealed a 3 cm (diameter) rubbery-textured, firm and nodular anal mass palpated 0 to 1 cm from the anal verge. The mass was non-circumferential and located predominantly at the posterior bowel wall. The sigmoid colon was significantly tortuous. Advancing the scope required using scope torsion. Multiple small and large-mouthed diverticula were found in the sigmoid colon. No biopsies or other specimens were collected for this exam. The exam was otherwise without abnormality on direct and retroflexion views. Impression: - Anal mass 0 to 1 cm from the anal verge. - Tortuous colon. - Diverticulosis in the sigmoid colon. No specimens collected. - The examination was otherwise normal on direct and retroflexion views. Recommendation: - Discharge patient to home (via wheelchair). - Soft diet for 2 days. - No aspirin, ibuprofen, naproxen, or other non-steroidal anti-inflammatory drugs for 2 days after biopsy. - Await pathology results. - Telephone nurse practitioner for pathology results in 1 week. - Repeat colonoscopy is recommended for surveillance. The colonoscopy date will be determined after pathology results from today's exam become available for review. Procedure Code(s): --- Professional --- 25240, Colonoscopy, flexible; diagnostic, including collection of specimen(s) by brushing or washing, when performed (separate procedure) Diagnosis Code(s): --- Professional --- K62.89, Other specified diseases of anus and rectum R10.30, Lower abdominal pain, unspecified K52.9, Noninfective gastroenteritis and colitis, unspecified K92.1, Melena (includes Hematochezia) K57.30, Diverticulosis of large intestine without perforation or abscess without bleeding Q43.8, Other specified congenital malformations of intestine CPT copyright 2021 [employer]. All rights reserved. The codes documented in this report are preliminary and upon pre coder review may be revised to meet current compliance requirements. Santino Vergara MD 09/22/2024 4:28:53 PM This report has been signed electronically. Number of Addenda: 0 Note Initiated On: 09/22/2024 3:15 PM
== END 2024-09-22 17:26 | disposition home or self-care (01) ==
LOC: EN 12:35 → AC 12:37
PROVIDERS: PCP Nurse Practitioner Family; Referring Provider Nurse Practitioner Family; Visit Provider Surgery
PROC: 0DJD8ZZ Inspection of Lower Intestinal Tract, Via Natural or Artificial Opening Endoscopic (ICD-10-PCS; CPT 45378; principal; 2024-09-22 13:25)
DX: K29.50 Unspecified chronic gastritis without bleeding (principal); K44.9 Diaphragmatic hernia without obstruction or gangrene; K31.7 Polyp of stomach and duodenum; K57.30 Diverticulosis of large intestine without perforation or abscess without bleeding; I10 Essential (primary) hypertension; K21.9 Gastro-esophageal reflux disease without esophagitis; E04.2 Nontoxic multinodular goiter; K62.89 Other specified diseases of anus and rectum; K62.0 Anal polyp; Z79.899 Other long term (current) drug therapy
CPT/HCPCS: 43251; 43239; 45378; 88305; 88342; A4216; J2405